=== PATIENT | male | born 1955 | race Caucasian/White ===

== ENCOUNTER 2021-04-27 07:26 | Day surgery (SDC) | payer BC ==
[~2021-04-27 07:26] MED LIST: LACTATED RINGERS 1,000 ML IV SCH
[2021-04-27 08:04] LABS: Glucose,Whole Blood 160 mg/dL (75-99)
[2021-04-27 08:06] VITALS: RESP 16; TEMP 96.8
[2021-04-27] MEDS ORDERED: PROPOFOL 10 MG/ML 20 ML VIAL IV ONE (08:22)
[2021-04-27] MEDS ORDERED: LIDOCAINE 1% INJ 10MG/ML (20 ML MDV) ONE (08:22)
--- NOTE | 2021-04-27 08:26 | P.GSHP ---
History of Present Illness H&P Date: 04/27/21 Chief Complaint: Positive cologuard 66-year-old male here today for colonoscopy. Patient had positive cologuard stool test 1 month ago that was positive. Patient has no bowel complaints himself. Does not visualize any blood. No family history of colon cancer. He has never had a colonoscopy. Past Medical History Past Medical History: Coronary Artery Disease (CAD), Diabetes Mellitus, Hyperlipidemia, Hypertension, Osteoarthritis (OA), Supraventricular Tachycardia (SVT) Additional Past Medical History / Comment(s): USES CPAP. History of Any Multi-Drug Resistant Organisms: None Reported Past Surgical History: No Surgical Hx Reported Past Anesthesia/Blood Transfusion Reactions: No Reported Reaction Additional Past Anesthesia/Blood Transfusion Reaction / Comment(s): NEVER HAD ANESTHESIA. Past Psychological History: Anxiety Smoking Status: Former smoker Past Alcohol Use History: Rare Additional Past Alcohol Use History / Comment(s): LAST TIME HE SMOKED IS IN THE 1980S, 1PPD Past Drug Use History: Marijuana Medications and Allergies Home Medications Medication Instructions Recorded Confirmed Type Atorvastatin [Lipitor] 20 mg PO HS 04/23/21 04/23/21 History Carvedilol [Coreg] 6.25 mg PO QAM 04/23/21 04/23/21 History Glimepiride [Amaryl] 4 mg PO BID 04/23/21 04/23/21 History Losartan Potassium 100 mg PO QAM 04/23/21 04/23/21 History Multivitamins, Thera [Multivitamin 1 tab PO DAILY 04/23/21 04/23/21 History (formulary)] Naproxen Sodium [Aleve] 220 - 440 mg PO Q6H PRN 04/23/21 04/23/21 History amLODIPine BESYLATE 5 mg PO BID 04/23/21 04/23/21 History hydroCHLOROthiazide 25 mg PO QAM 04/23/21 04/23/21 History metFORMIN HCL [Glucophage] 1,000 mg PO BID 04/23/21 04/23/21 History sitaGLIPtin [Januvia] 100 mg PO QAM 04/23/21 04/23/21 History Allergies Allergy/AdvReac Type Severity Reaction Status Date / Time No Known Allergies Allergy Verified 04/23/21 12:03 Surgical - Exam Vital Signs Temp Pulse Resp BP Pulse Ox 96.8 F L 88 16 161/77 95 04/27/21 07:55 04/27/21 07:55 04/27/21 07:55 04/27/21 07:55 04/27/21 07:55 Physical exam: General: Well-developed, well-nourished HEENT: Normocephalic, sclerae nonicteric Abdomen: Nontender, nondistended Extremities: No edema Neuro: Alert and oriented Results - Labs Abnormal Lab Results - Last 24 Hours (Table) 04/27/21 Range/Units 08:01 POC Glucose (mg/dL) 160 H (75-99) mg/dL Assessment and Plan (1) Positive colorectal cancer screening using Cologuard test Narrative/Plan: Will proceed with colonoscopy at this time Current Visit: Yes Status: Acute Code(s): R19.5 - OTHER FECAL ABNORMALITIES SNOMED Code(s): 749231424
--- NOTE | 2021-04-27 08:45 | P.PCN ---
Date of Procedure: 04/27/21 Procedure(s) Performed: PREOPERATIVE DIAGNOSIS: Positive cologuard test POSTOPERATIVE DIAGNOSIS: Small sigmoid colon polyp PROCEDURE: Colonoscopy with snare polypectomy ANESTHESIA: MAC SURGEON: Kehinde Edwards M.D. SPECIMENS: Sigmoid polyp ENDOSCOPIC PROCEDURE: The patient was placed on the endoscopy table in the left decubitus position. The Olympus colonoscope was inserted into the anus and passed under direct visualization to the base of the cecum. The appendiceal orifice was visualized. From that point the scope was slowly withdrawn inspecting all surfaces carefully. There were no neoplastic inflammatory or polypoid lesions throughout the cecum, ascending, transverse, and descending colon. In the sigmoid there was a small polyp removed using the snare with cautery technique. The remainder of the sigmoid and rectum appeared normal. There was no visible diverticulosis. Digital rectal examination was normal. The patient was taken to the recovery room in stable condition per anesthesia guidelines. RECOMMENDATIONS: Resume diet. Await biopsy results.
[2021-04-27 09:05] VITALS: BP 125/79; PULSE 73
== END 2021-04-27 09:21 | disposition home or self-care (01) ==
LOC: ORWHC2ENDO 07:26
PROVIDERS: ATTEND Surgery
DX: D12.5 Benign neoplasm of sigmoid colon (principal); E11.9 Type 2 diabetes mellitus without complications; E78.5 Hyperlipidemia, unspecified; I10 Essential (primary) hypertension; I25.10 Atherosclerotic heart disease of native coronary artery without angina pectoris; G47.33 Obstructive sleep apnea (adult) (pediatric); M19.90 Unspecified osteoarthritis, unspecified site; Z79.84 Long term (current) use of oral hypoglycemic drugs; Z87.891 Personal history of nicotine dependence
CPT/HCPCS: 45385; 88305; J2001; J2704

== ENCOUNTER 2023-01-27 02:18 | Emergency (ER) | payer BC, MEDICARE ==
[2023-01-27 02:24] VITALS: BP 159/92; PULSE 67; RESP 20; TEMP 97.7
--- NOTE | 2023-01-27 02:53 | ED ---
General Adult HPI - General Chief complaint: Skin/Abscess/Foreign Body Stated complaint: Right Hand Swelling, Finger Time Seen by Provider: 01/27/23 02:47 Source: patient Mode of arrival: ambulatory Limitations: no limitations - History of Present Illness Initial comments: Patient is 67-year-old male who presents to the emergency department for ring stuck on finger. Patient states tonight he noticed his ring finger was swollen and he could not get his ring off. No injury. He denies any pain. No swelling of the other digits. No chest pain or shortness of breath. - Related Data Home Medications Medication Instructions Recorded Confirmed Atorvastatin [Lipitor] 20 mg PO HS 04/23/21 04/23/21 Glimepiride [Amaryl] 4 mg PO BID 04/23/21 04/23/21 Losartan Potassium 100 mg PO QAM 04/23/21 04/23/21 Multivitamins, Thera [Multivitamin 1 tab PO DAILY 04/23/21 04/23/21 (formulary)] Naproxen Sodium [Aleve] 220 - 440 mg PO Q6H PRN 04/23/21 04/23/21 amLODIPine BESYLATE 5 mg PO BID 04/23/21 04/23/21 carvediloL [Coreg] 6.25 mg PO QAM 04/23/21 04/23/21 hydroCHLOROthiazide 25 mg PO QAM 04/23/21 04/23/21 metFORMIN HCL [Glucophage] 1,000 mg PO BID 04/23/21 04/23/21 sitaGLIPtin [Januvia] 100 mg PO QAM 04/23/21 04/23/21 Allergies Allergy/AdvReac Type Severity Reaction Status Date / Time No Known Allergies Allergy Verified 01/27/23 02:24 Review of Systems ROS Statement: Those systems with pertinent positive or pertinent negative responses have been documented in the HPI. ROS Other: All systems not noted in ROS Statement are negative. Past Medical History Past Medical History: Coronary Artery Disease (CAD), Diabetes Mellitus, Hyperlipidemia, Hypertension, Osteoarthritis (OA), Supraventricular Tachycardia (SVT) Additional Past Medical History / Comment(s): USES CPAP. History of Any Multi-Drug Resistant Organisms: None Reported Past Surgical History: No Surgical Hx Reported Past Anesthesia/Blood Transfusion Reactions: No Reported Reaction Additional Past Anesthesia/Blood Transfusion Reaction / Comment(s): NEVER HAD A NESTHESIA. Past Psychological History: Anxiety Smoking Status: Former smoker Past Alcohol Use History: Rare Past Drug Use History: Marijuana General Exam Limitations: no limitations General appearance: alert Head exam: Present: atraumatic, normocephalic, normal inspection Eye exam: Present: normal appearance, PERRL, EOMI. Absent: scleral icterus, conjunctival injection, periorbital swelling Respiratory exam: Present: normal lung sounds bilaterally. Absent: respiratory distress, wheezes, rales, rhonchi, stridor Cardiovascular Exam: Present: regular rate, normal rhythm, normal heart sounds. Absent: systolic murmur, diastolic murmur, rubs, gallop, clicks Right Hand Wrist exam: Present: full ROM, swelling (Right ring finger only). Absent: normal inspection, tenderness, laceration, ecchymosis, deformity, crepitus, dislocation, erythema Psychiatric exam: Present: normal affect, normal mood Skin exam: Present: warm, dry, intact, normal color. Absent: rash Course Vital Signs 01/27/23 02:20 Temperature 97.7 F Pulse Rate 67 Respiratory 20 Rate Blood Pressure 159/92 O2 Sat by Pulse 95 Oximetry Medical Decision Making - Medical Decision Making Was pt. sent in by a medical professional or institution (, PA, [employer], urgent care, hospital, or detention...) When possible be specific @ -No Did you speak to anyone other than the patient for history (EMS, parent, family, police, friend...)? What history was obtained from this source @ -No Did you review nursing and triage notes (agree or disagree)? Why? @ -I reviewed and agree with nursing and triage notes Were old charts reviewed (outside hosp., previous admission, EMS record, old EKG, old radiological studies, urgent care reports/EKG's, detention records)? Report findings @ -No old charts were reviewed Differential Diagnosis (chest pain, altered mental status, abdominal pain women, abdominal pain men, vaginal bleeding, weakness, fever, dyspnea, syncope, headache, dizziness, GI bleed, back pain, seizure, CVA, palpatations, mental health)? @ -not applicable EKG interpreted by me (3pts min.). @ -As above X-rays interpreted by me (1pt min.). @ -None done CT interpreted by me (1pt min.). @ -None done U/S interpreted by me (1pt. min.). @ -None done What testing was considered but not performed or refused? (CT, X-rays, U/S, labs)? Why? @ -None What meds were considered but not given or refused? Why? @ -None Did you discuss the management of the patient with other professionals (professionals i.e. Dr., PA, [employer], lab, RT, psych nurse, director social service, letterer, teacher, guest services officer, rn case manager)? Give summary @ -No Was smoking cessation discussed for >3mins.? @ -No Was critical care preformed (if so, how long)? @ -No Were there social determinants of health that impacted care today? How? (Homelessness, low income, unemployed, alcoholism, drug addiction, transportation, low edu. Level, literacy, decrease access to med. care, alf, rehab)? @ -No Was there de-escalation of care discussed even if they declined (Discuss DNR or withdrawal of care, Hospice)? DNR status @ -No What co-morbidities impacted this encounter? (DM, HTN, Smoking, COPD, CAD, Cancer, CVA, ARF, Chemo, Hep., AIDS, mental health diagnosis, sleep apnea, morbid obesity)? @ -None Was patient admitted / discharged? Hospital course, mention meds given and route, prescriptions, significant lab abnormalities, going to OR and other pertinent info. @ -Patient has isolated swelling where ring is stuck on right ring finger. It was removed and swelling went down. Cap refill < 2 seconds. She has no pain or other concerns he will be discharged home Undiagnosed new problem with uncertain prognosis? @ -No] Drug Therapy requiring intensive monitoring for toxicity (Heparin, Nitro, Insulin, Cardizem)? @ -[No] Were any procedures done? @ -[No] Diagnosis/symptom? @ -Ring stuck on finger Acute, or Chronic, or Acute on Chronic? @ -acute Uncomplicated (without systemic symptoms) or Complicated (systemic symptoms)? @ -uncomplicated Side effects of treatment? @ -[No] Exacerbation, Progression, or Severe Exacerbation? @ -[No] Poses a threat to life or bodily function? How? (Chest pain, USA, CT, pneumonia, PE, COPD, DKA, ARF, appy, cholecystitis, CVA, Diverticulitis, Homicidal, Suicidal, threat to staff... and all critical care pts) @ -[No] Dr. Mccrary is my attending Disposition Clinical Impression: Tight ring on finger Disposition: HOME SELF-CARE Condition: Good Instructions (If sedation given, give patient instructions): P.R.I.C.E. Treatment (ED) Additional Instructions: Please follow-up with your primary care provider in 1-2 days. Return to the emergency department if you experience new, concerning, or worsening symptoms. Is patient prescribed a controlled substance at d/c from ED?: No Referrals: Benja Ferris, [Primary Care Provider] - 1-2 days
== END 2023-01-27 03:26 | disposition home or self-care (01) ==
LOC: EC 02:18
DX: M79.89 Other specified soft tissue disorders (principal); I25.10 Atherosclerotic heart disease of native coronary artery without angina pectoris; E11.9 Type 2 diabetes mellitus without complications; E78.5 Hyperlipidemia, unspecified; I10 Essential (primary) hypertension; M19.90 Unspecified osteoarthritis, unspecified site; F41.9 Anxiety disorder, unspecified; F12.90 Cannabis use, unspecified, uncomplicated; Z87.891 Personal history of nicotine dependence; Z79.84 Long term (current) use of oral hypoglycemic drugs; Z79.1 Long term (current) use of non-steroidal anti-inflammatories (NSAID); Z79.899 Other long term (current) drug therapy
CPT/HCPCS: 99283

== ENCOUNTER → 2023-10-17 | Outpatient (CLI) | payer BC, MEDICARE ==
--- NOTE | 2023-10-17 17:27 | CT ---
EXAMINATION TYPE: CT sinus wo con DATE OF EXAM: 10/17/2023 COMPARISON: none HISTORY: Chronic maxillary sinusitis. CT DLP: [address] of the paranasal sinuses was performed in the axial and coronal planes. Bone and soft tissue settings are submitted. The paranasal sinuses demonstrate normal aeration and development. There is near-complete opacification of the maxillary sinuses. Moderate opacification of the ethmoid air cells. Diminutive frontal sinuses are nearly completely opacified. Mild mucosal thickening spheno id sinus on the right. Underlying polyposis not excluded. Obstruction of the bilateral ostiomeatal units. The nasal septum is midline. No bony destructive changes are seen within the field of view. IMPRESSION: Moderate to severe chronic sinusitis. Underlying polyposis not excluded.
== END | disposition home or self-care (01) ==
LOC: RADCTMAIN 08-31 16:34
PROVIDERS: ATTEND Otolaryngology
DX: J32.0 Chronic maxillary sinusitis (principal)
CPT/HCPCS: 70486